=== PATIENT | male | born 1995 | race Caucasian/White ===

== ENCOUNTER 2023-08-09 13:38 | Outpatient (CLI) | payer BC, SELFPAY ==
[2023-08-09 19:00] LABS: Hematocrit 43.6 % (42.0-52.0); Hemoglobin 14.5 g/dL (14.0-18.0); Mean Corpuscular HGB Conc 33.3 g/dl (32-36); Mean Corpuscular Hemoglobin 30.4 pg (26-34); Mean Corpuscular Volume 91.4 fl (80-100); Platelet Count Result 235 k/mm3 (150-375); Red Blood Count 4.77 M/mm3 (4.6-6.20); Red Cell Distribution Width 12.2 % (11.5-14.5); White Blood Count 5.5 K/mm3 (4.5-10.0)
[2023-08-09 19:12] LABS: Alanine Aminotransferase 33 U/L (6-50); Albumin Level 4.9 g/dL (3.5-5.1); Alkaline Phosphatase 62 U/L (38-126); Anion Gap 9 mmol/L (8-16); Aspartate Amino Transferase 53 U/L (17-59); Bilirubin,Total 2.2 mg/dL (0.2-1.3); Blood Urea Nitrogen 10 mg/dL (9-20); Calcium 9.9 mg/dL (8.4-10.2); Carbon Dioxide 26 mmol/L (22-30); Chloride 100 mmol/L (98-107); Cholesterol 167 mg/dL (0-200); Estimated Glomerular Filt Rate > 60; Glucose 100 mg/dL (65-110); HDL Direct 84 mg/dL; Potassium 3.9 mmol/L (3.4-5.0); Sodium 135 mmol/L (137-145); Triglycerides 52 mg/dL (<150)
[2023-08-09 19:23] LABS: LDL Cholesterol Direct 70 mg/dL
[2023-08-09 20:16] LABS: Folic Acid 12.1 ng/mL (2.76->20)
== END 2023-08-09 13:39 | disposition home or self-care (01) ==
PROVIDERS: PCP Nurse Practitioner Adult Health; Visit Provider Nurse Practitioner Adult Health
DX: R41.840 Attention and concentration deficit (principal); Z13.9 Encounter for screening, unspecified
CPT/HCPCS: 36415; 80053; 80061; 82607; 82746; 84443; 85027

== ENCOUNTER → 2023-08-14 13:40 | Outpatient (CLI) | payer BC, SELFPAY ==
--- NOTE | ~2023-08-14 | US_ITS ---
Limited Abdominal Sonogram: Real-time sonographic imaging of the right upper quadrant was performed. Clinical History: Disorder bilirubin metabolism Findings: The liver appears normal with no evidence of mass lesion or bile duct dilatation. Main por sreekanth vein demonstrates normal direction of flow. The gallbladder is well distended, and appears normal with no evidence of gallstone or wall thickening. The common bile duct measures 4 mm. The visualize d pancreas, aorta, and IVC are unremarkable. Impression: No significant abnormality seen. Reviewed, dictated and finalized at location . [employer] Impression: No significant abnormality seen.
== END ==
PROVIDERS: PCP Nurse Practitioner Adult Health; Visit Provider Nurse Practitioner Adult Health
DX: E80.6 Other disorders of bilirubin metabolism (principal)
CPT/HCPCS: 76705